=== PATIENT | male | born 1965 | race Caucasian/White ===

== ENCOUNTER 2023-09-30 12:18 | Inpatient (IN) | payer OTHER ==
[2023-09-30] MEDS ORDERED: TRIMETHOBENZAMIDE HCL 200MG/2ML INJ IM ONE (13:44)
[2023-09-30] MEDS ORDERED: guaiFENesin 600 MG TABLET.ER (FP) PO PRN (14:02)
[2023-09-30] MEDS ORDERED: ONDANSETRON *ODT* 4 MG TABLET SL PRN (14:02)
[2023-09-30] MEDS ORDERED: IBUPROFEN 400 MG TABLET (FP) PO PRN (14:02)
[2023-09-30] MEDS ORDERED: LOPERAMIDE HCL 2 MG CAPSULE PO PRN (14:02)
[2023-09-30] MEDS ORDERED: MAGNESIUM HYDROX 2400MG/30ML ORAL SUSPENSION 30 ML CUP PO PRN (14:02)
[2023-09-30] MEDS ORDERED: MAG HYDROX/AL HYDROX/SIMETH 30 ML UNIT-DOSE CUP PO PRN (14:02)
[2023-09-30] MEDS ORDERED: P-EPHED 60MG/TRIPROLIDI 2.5MG TABLET PO PRN (14:02)
[2023-09-30] MEDS ORDERED: DICYCLOMINE HCL 10 MG CAPSULE PO PRN (14:02)
[2023-09-30] MEDS ORDERED: BENZONATATE 200 MG CAPSULE PO PRN (14:02)
[2023-09-30] MEDS ORDERED: IBUPROFEN 600 MG TABLET (FP) PO PRN (14:02)
[2023-09-30] MEDS ORDERED: BENZOCAINE/MENTHOL (CHLORASEPTIC ) LOZENGE MM PRN (14:02)
[2023-09-30] MEDS ORDERED: ACETAMINOPHEN 325 MG TABLET (FP) PO PRN (14:02)
[2023-09-30] MEDS ORDERED: POLYETHYLENE GLYCOL (HEALTHYLAX) 3350 17 GM PACKET PO PRN (14:02)
[2023-09-30] MEDS ORDERED: chlordiazePOXIDE HCL 25 MG CAPSULE PO PRN (14:03)
[2023-09-30 14:37] VITALS: BMI 31.8
[2023-09-30] MEDS: chlordiazePOXIDE HCL 25 MG CAPSULE PO SCH ×2 (17:34→22:29)
[2023-09-30] MEDS: MELATONIN 5 MG TABLETS PO SCH (22:29)
[2023-09-30] MEDS: THIAMINE HCL 100 MG TABLET (FP) PO SCH (22:29)
[2023-09-30] MEDS: BISMUTH SUBSALICYLATE 262 MG/15 ML BTL PO PRN (22:32)
[2023-10-01] MEDS: chlordiazePOXIDE HCL 25 MG CAPSULE PO SCH ×4 (05:18→22:56)
[2023-10-01] MEDS: PRENATAL VITAMINS W/ FOLIC ACID TABLET (FP) PO SCH (10:14)
[2023-10-01] MEDS: BISMUTH SUBSALICYLATE 262 MG/15 ML BTL PO PRN ×2 (10:18→17:23)
[2023-10-01 10:42] LABS: MCH 33.3 pg (25.7-33.7); MCHC 34.9 g/dl (32.0-35.9); MEAN CELL VOLUME 95.5 fl (80-96); MEAN PLT VOLUME 7.9 fl (7.5-11.1); PLATELET COUNT 156 10^3/uL (134-434); RBC 4.51 M/mm3 (4.00-5.60); RDW 14.8 % (11.9-15.9); WHITE BLOOD COUNT 9.1 K/mm3 (4.0-10.0)
[2023-10-01 10:54] LABS: POTASSIUM 3.7 mmol/L (3.5-5.1)
[2023-10-01 11:31] LABS: ALBUMIN 4.2 g/dl (3.4-5.0); BLOOD UREA NITROGEN 19.2 mg/dL (7-18); CALCIUM 9.6 mg/dL (8.5-10.1)
[2023-10-01 11:34] LABS: CREATININE 1.1 mg/dL (0.55-1.3)
[2023-10-01 11:36] LABS: BILIRUBIN,TOTAL 3.1 mg/dL (0.2-1); TOT PROT 8.5 g/dl (6.4-8.2)
[2023-10-01] MEDS: THIAMINE HCL 100 MG TABLET (FP) PO SCH (22:56)
[2023-10-01] MEDS: MELATONIN 5 MG TABLETS PO SCH (22:56)
[2023-10-02] MEDS: chlordiazePOXIDE HCL 25 MG CAPSULE PO SCH ×2 (05:30→11:05)
[2023-10-02 07:01] VITALS: PULSE 98; TEMP 97.7
[2023-10-02 10:05] VITALS: BP 155/95; RESP 20
[2023-10-02] MEDS: PRENATAL VITAMINS W/ FOLIC ACID TABLET (FP) PO SCH (10:13)
[2023-10-03] MEDS ORDERED: chlordiazePOXIDE HCL 10 MG CAPSULE PO PRN
[2023-10-03] MEDS ORDERED: chlordiazePOXIDE HCL 10 MG CAPSULE PO SCH (05:00)
[2023-10-04] MEDS ORDERED: chlordiazePOXIDE HCL 10 MG CAPSULE PO SCH (05:00)
[2023-10-05] MEDS ORDERED: chlordiazePOXIDE HCL 10 MG CAPSULE PO ONE (05:00)
== END 2023-10-02 11:22 | disposition left against medical advice (07) | DRG 894 ==
LOC: YASAS 12:18 → Y6N 15:41
PROVIDERS: ADMIT Allergy & Immunology; ATTEND Allergy & Immunology
PROC: HZ2ZZZZ Detoxification Services for Substance Abuse Treatment (ICD-10-PCS; principal; 2023-09-30)
DX: F10.230 Alcohol dependence with withdrawal, uncomplicated (principal)
CPT/HCPCS: 36415; 80053; 85027; 86780; 87635; 87811